=== PATIENT | male | born 1970 | race Two or more races ===

== ENCOUNTER 2017-01-11 13:18 | Inpatient (IN) | payer OTHER ==
[2017-01-11 14:18] VITALS: BMI 20.9
--- NOTE | 2017-01-11 15:28 | HP ---
CIWA Score - CIWA Score Nausea/Vomitin-Mild Nausea/No Vomiting Muscle Tremors: 4-Moderate,w/Arms Extend Anxiety: 4-Mod. Anxious/Guarded Agitation: 4-Moderately Restless Paroxysmal Sweats: 3 Orientation: 0-Oriented Tacttile Disturbances: 0-None Auditory Disturbances: 0-None Visual Disturbances: 0-None Headache: 3-Moderate CIWA-Ar Total Score: 19 Admission ROS [facility] - HPI Chief Complaint: I need detox Allergies/Adverse Reactions: Allergies Allergy/AdvReac Type Severity Reaction Status Date / Time No Known Allergies Allergy Verified 01/11/17 15:07 History of Present Illness: pt is a 46yr old female with a history of alcohol dependence seeking detox for treatment. Exam Limitations: No Limitations - Ebola screening Have you traveled outside of the country in the last 21 days: No Have you had contact with anyone from an Ebola affected area: No Have you been sick,other than usual withdrawal symptoms: No Do you have a fever: No - Review of Systems Constitutional: Diaphoresis, Loss of Appetite, Changes in sleep, Unintentional Wgt. Loss EENT: reports: Tearing Respiratory: reports: Cough Cardiac: reports: Syncope GI: reports: Diarrhea, Nausea, Poor Appetite, Poor Fluid Intake, Vomiting : reports: No Symptoms Reported Musculoskeletal: reports: Back Pain, Joint Pain Integumentary: reports: Flushing, Sweating Neuro: reports: Headache, Tingling, Tremors Endocrine: reports: Excessive Sweating, Flushing, Intolerance to Cold, Intolerance to Heat Hematology: reports: No Symptoms Reported Psychiatric: reports: Judgement Intact, Mood/Affect Appropiate, Orientated x3, Agitated, Anxious Other Systems: Reviewed and Negative Patient History - Patient Medical History Hx Anemia: No Hx Asthma: Yes Hx Chronic Obstructive Pulmonary Disease (COPD): No Hx Cancer: No Hx Cardiac Disorders: No Hx Congestive Heart Failure: No Hx Hypertension: No Hx Hypercholesterolemia: No Hx Pacemaker: No HX Cerebrovascular Accident: No Hx Seizures: No Hx Dementia: No Hx Diabetes: No Hx Gastrointestinal Disorders: No Hx Liver Disease: No Hx Genitourinary Disorders: No Hx Sexually Transmitted Disorders: No Hx Renal Disease (ESRD): No Hx Thyroid Disease: No Hx Human Immunodeficiency Virus (HIV): Yes (dx-2000, triumeq did not bring med) Hx Hepatitis C: No Hx Depression: Yes Hx Suicide Attempt: No (denies) Hx Bipolar Disorder: Yes Hx Schizophrenia: No - Patient Surgical History Past Surgical History: Yes Other Surgical History: skin abscesses with i/d - PPD History Previous Implant?: Yes Documented Results: Negative w/o proof PPD to be Administered?: Yes - Reproductive History Patient is a Female of Child Bearing Age (11 -55 yrs old): No - Smoking Cessation Smoking history: Current every day smoker Have you smoked in the past 12 months: Yes Aproximately how many cigarettes per day: 7 Cigars Per Day: 0 Hx Chewing Tobacco Use: No Initiated information on smoking cessation: Yes 'Breaking Loose' booklet given: 01/11/17 - Substance & Tx. History Hx Alcohol Use: Yes Hx Substance Use: No Substance Use Type: Alcohol Hx Substance Use Treatment: Yes - Substances Abused Alcohol-beer/vodka Route: Oral Frequency: Daily Amount used: 2-6 pks./1 pt. Age of first use: 36 Date of Last Use: 01/11/17 Family Disease History - Family Disease History Family Disease History: Heart Disease: Brother (cad/[place] 2 brothers ) Admission Physical Exam [facility] - Vital Signs Vital Signs: Vital Signs - 24 hr 01/11/17 14:16 Temperature 98.3 F Pulse Rate 80 Respiratory 20 Rate Blood Pressure 105/69 - Physical General Appearance: Yes: Appropriately Dressed, Moderate Distress, Tremorous, Irritable, Sweating, Anxious HEENTM: Yes: Normal Voice, Nasal Congestion, Rhinorrhea Respiratory: Yes: Lungs Clear, Normal Breath Sounds, No Respiratory Distress Neck: Yes: No masses,lesions,Nodules Breast: Yes: Within Normal Limits Cardiology: Yes: Regular Rhythm, Regular Rate, S1, S2 Abdominal: Yes: Normal Bowel Sounds, Non Tender, Soft Genitourinary: Yes: Within Normal Limits Back: Yes: Normal Inspection Musculoskeletal: Yes: full range of Motion, Back pain Extremities: Yes: Normal Capillary Refill, Non-Tender, Tremors Neurological: Yes: Fully Oriented, Alert, Normal Response Integumentary: Yes: Normal Color, Diaphoresis Lymphatic: Yes: Within Normal Limits - Diagnostic (1) Asthma Current Visit: Yes Status: Chronic Qualifiers: Asthma severity: mild intermittent Asthma complication type: uncomplicated Qualified Code(s): J45.20 - Mild intermittent asthma, uncomplicated (2) HIV disease Current Visit: Yes Status: Chronic Comment: not sure of viral load or tcell count (3) Nicotine dependence Current Visit: Yes Status: Chronic Qualifiers: Nicotine product type: cigarettes Substance use status: uncomplicated Qualified Code(s): F17.210 - Nicotine dependence, cigarettes, uncomplicated (4) Alcohol dependence with uncomplicated withdrawal Current Visit: Yes Status: Chronic (5) Cocaine dependence, uncomplicated Current Visit: Yes Status: Chronic (6) H/O shigellosis Current Visit: No Status: Inactive Cleared for Admission [facility] - Detox or Rehab [facility] Level of Care: Medically Managed Detox Regimen/Protocol: Librium [facility] Breath Alcohol Content Breath Alcohol Content: 0.042 Urine Pregancy Test - Result Urine Test Results: Negative- NO Line Present Urine Drug Screen - Results Drug Screen Negative: No Urine Drug Screen Results: KATHLEEN-Cocaine
[2017-01-11] MEDS ORDERED: IBUPROFEN 400 MG TABLET (FP) PO PRN (15:46)
[2017-01-11] MEDS ORDERED: ACETAMINOPHEN 325 MG TABLET (FP) PO PRN (15:46)
[2017-01-11] MEDS ORDERED: guaiFENesin/D-METHORPHAN HB 10 ML UNIT-DOSE CUPS PO PRN (15:46)
[2017-01-11] MEDS ORDERED: MAG HYDROX/AL HYDROX/SIMETH 30 ML UNIT-DOSE CUP PO PRN (15:46)
[2017-01-11] MEDS ORDERED: hydrOXYzine PAMOATE 50 MG CAPSULE (FP) PO PRN (15:46)
[2017-01-11] MEDS ORDERED: MAGNESIUM CITRATE 300 ML BOTTLE PO PRN (15:46)
[2017-01-11] MEDS ORDERED: MAGNESIUM HYDROX 2400MG/30ML ORAL SUSPENSION 30 ML CUP PO PRN (15:46)
[2017-01-11] MEDS ORDERED: NICOTINE POLACRILEX 4 MG GUM BC PRN (15:46)
[2017-01-11] MEDS ORDERED: MENTHOL/PHENOL 1 EACH UD MM PRN (15:46)
[2017-01-11] MEDS ORDERED: LOPERAMIDE HCL 2 MG CAPSULE PO PRN (15:46)
[2017-01-11] MEDS ORDERED: P-EPHED 60MG/TRIPROLIDI 2.5MG TABLET PO PRN (15:46)
[2017-01-11] MEDS ORDERED: chlordiazePOXIDE HCL 25 MG CAPSULE PO PRN (15:46)
[2017-01-11] MEDS ORDERED: TRIMETHOBENZAMIDE HCL 300 MG CAPSULE PO PRN (15:51)
[2017-01-11] MEDS ORDERED: COLLOIDAL OATMEAL 1 BAR EACH TP PRN (15:52)
[2017-01-11] MEDS ORDERED: ALBUTEROL SO4 6.7 GM HFA INHALER IH PRN (16:00)
[2017-01-11] MEDS ORDERED: chlordiazePOXIDE HCL 25 MG CAPSULE PO ONE (18:00)
[2017-01-11 22:46] LABS: URINE APPEARANCE CLEAR; URINE BILIRUBIN NEGATIVE (NEGATIVE); URINE BLOOD NEGATIVE (NEGATIVE); URINE COLOR YELLOW; URINE GLUCOSE (UA) NEGATIVE (NEGATIVE); URINE KETONE TRACE (NEGATIVE); URINE LEUK ESTERASE NEGATIVE (NEGATIVE); URINE NITRITE NEGATIVE (NEGATIVE); URINE PROTEIN NEGATIVE (NEGATIVE); URINE UROBILINOGEN NEGATIVE E.U./dl (0.2-1.0)
[2017-01-11] MEDS: THIAMINE HCL 100 MG TABLET (FP) PO SCH (23:36)
[2017-01-11] MEDS: chlordiazePOXIDE HCL 25 MG CAPSULE PO SCH (23:36)
[2017-01-12] MEDS: chlordiazePOXIDE HCL 25 MG CAPSULE PO SCH ×4 (05:27→22:04)
--- NOTE | 2017-01-12 08:25 | EKG ---
Test Reason : Blood Pressure : / mmHG Vent. Rate : 072 BPM Atrial Rate : 072 BPM P-R Int : 144 ms QRS Dur : 086 ms QT Int : 398 ms P-R-T Axes : 050 -45 025 degrees QTc Int : 435 ms NORMAL SINUS RHYTHM LEFT AXIS DEVIATION ABNORMAL ECG NO PREVIOUS ECGS AVAILABLE Confirmed by VALERIO AL MD ([id number]) on 01/12/2017 8:25:22 AM Referred By: Confirmed By:VALERIO AL MD
--- NOTE | 2017-01-12 10:22 | CONSULT ---
[facility] Psychiatric Consult - Data Date of interview: 01/12/17 Admission source: [facility] Identifying data: This is 46 years old male with history of psychiatric hospitalizations intoxicated with Alcohol and Nicotine Substance Abuse History: - Smoking Cessation. Smoking history: Current every day smoker. Have you smoked in the past 12 months: Yes. Aproximately how many cigarettes per day: 7. Cigars Per Day: 0. Hx Chewing Tobacco Use: No. Initiated information on smoking cessation: Yes. 'Breaking Loose' booklet given : 01/11/17. - Substance & Tx. History. Hx Alcohol Use: Yes. Hx Substance Use : No. Substance Use Type: Alcohol. Hx Substance Use Treatment: Yes. - Substances Abused. Alcohol-beer/vodka. Route: Oral. Frequency: Daily. Amount used: 2-6 pks./1 pt. Age of first use: 36. Date of Last Use: 01/11/17 Medical History: Asthma, HIV, Psychiatric History: Patient reports history of Bipolar Dicorider, PTSD history , reports taking prior to admission, reports taking prior to admission: Zyprexa 20mg po qhs. Trazodone 50mg po qhs Physical/Sexual Abuse/Trauma History: Denies Additional Comment: Zyprexa 20mg po qhs. Trazodone 50mg po qhs Mental Status Exam - Mental Status Exam Alert and Oriented to: Person Cognitive Function: Fair Patient Appearance: Unkempt Mood: Anxious Affect: Constricted Patient Behavior: Fatigued, Guarded Speech Pattern: Slurred Voice Loudness: Mildly Soft/Quiet Thought Process: Circumstantial Thought Disorder: Being Controlled Hallucinations: Denies Suicidal Ideation: Denies Homicidal Ideation: Denies Insight/Judgement: Fair Sleep: Difficulty falling asleep Appetite: Weight loss Muscle strength/Tone: Mild Hypotonicity Gait/Station: Shuffling Additional Comments: Zyprexa 20mg po qhs. Trazodone 50mg po qhs Psychiatric Findings - Problem List ([place] 1, 2,3) (1) Alcohol dependence with uncomplicated withdrawal Current Visit: Yes Status: Chronic (2) Cocaine dependence, uncomplicated Current Visit: Yes Status: Chronic (3) Nicotine dependence Current Visit: Yes Status: Chronic Qualifiers: Nicotine product type: cigarettes Substance use status: uncomplicated Qualified Code(s): F17.210 - Nicotine dependence, cigarettes, uncomplicated (4) Bipolar I disorder, most recent episode mixed, severe with psychotic features Current Visit: No Status: Acute (5) Posttraumatic stress disorder Current Visit: No Status: Acute (6) Alcohol induced insomnia Current Visit: Yes Status: Acute - Initial Treatment Plan Initial Treatment Plan: Zyprexa 20mg po qhs. Trazodone 50mg po qhs
[2017-01-12 10:24] LABS: ALBUMIN 3.9 g/dl (3.4-5.0); ANION GAP 12 (8-16); BILIRUBIN,TOTAL 0.4 mg/dL (0.2-1.0); CALCIUM 8.5 mg/dL (8.5-10.1); CO2 26 mmol/L (21-32); CREATININE 0.7 mg/dL (0.7-1.3); GLUCOSE,RANDOM 78 mg/dL (74-106); SGOT/AST 172 U/L (15-37); SGPT/ALT 68 U/L (12-78); TOT PROT 8.8 g/dl (6.4-8.2)
[2017-01-12 10:25] LABS: ALK PHOS 115 U/L (45-117)
[2017-01-12] MEDS: PRENATAL VITAMINS W/ FOLIC ACID TABLET (FP) PO SCH (10:27)
[2017-01-12] MEDS: NICOTINE 21 MG/24 HOURS TOPICAL PATCH TD SCH (10:29)
--- NOTE | 2017-01-12 10:33 | PN ---
S CIWA - CIWA Score Nausea/Vomitin-Mild Nausea/No Vomiting Muscle Tremors: 4-Moderate,w/Arms Extend Anxiety: 3 Agitation: 4-Moderately Restless Paroxysmal Sweats: 3 Orientation: 0-Oriented Tacttile Disturbances: 0-None Auditory Disturbances: 0-None Visual Disturbances: 0-None Headache: 1-Very Mild CIWA-Ar Total Score: 16 BHS Progress Note (SOAP) Subjective: nausea interrupted sleep shakes sweats chills Objective: 01/12/17 10:32 Vital Signs Temperature 98.1 F 01/12/17 06:49 Pulse Rate 86 01/12/17 06:49 Respiratory Rate 18 01/12/17 06:49 Blood Pressure 99/65 01/12/17 06:49 O2 Sat by Pulse Oximetry (%) Laboratory Tests 01/11/17 20:00 Urine Color Yellow Urine Appearance Clear Urine pH 5.0 Ur Specific [place] 1.016 Urine Protein Negative Urine Glucose (UA) Negative Urine Ketones Trace H Urine Blood Negative Urine Nitrite Negative Urine Bilirubin Negative Urine Urobilinogen Negative Ur Leukocyte Esterase Negative labs pending awake/alert ambulating no acute distress Assessment: 01/12/17 10:33 withdrawal sx Plan: continue detox increase fluids labs pending
[2017-01-12 10:49] LABS: MCH 30.1 pg (25.7-33.7); MCHC 33.1 g/dl (32.0-35.9); PLATELET COUNT 237 K/MM3 (134-434); RDW 15.4 % (11.9-15.9); WHITE BLOOD COUNT 4.1 K/mm3 (4.0-10.0)
[2017-01-12] MEDS: HYDROCORTISONE 1% TOPICAL OINT 30 GM TUBE TP PRN ×2 (15:51→22:05)
[2017-01-12] MEDS: traZODone HCL 50 MG TABLET (FP) PO SCH (22:04)
[2017-01-12] MEDS: THIAMINE HCL 100 MG TABLET (FP) PO SCH (22:04)
[2017-01-12] MEDS: OLANZapine 10 MG TABLET PO SCH (22:04)
[2017-01-13] MEDS: chlordiazePOXIDE HCL 25 MG CAPSULE PO SCH ×3 (07:53→17:57)
[2017-01-13] MEDS: PRENATAL VITAMINS W/ FOLIC ACID TABLET (FP) PO SCH (10:29)
[2017-01-13] MEDS: NICOTINE 21 MG/24 HOURS TOPICAL PATCH TD SCH (10:29)
--- NOTE | 2017-01-13 11:55 | PN ---
S CIWA - CIWA Score Nausea/Vomitin Muscle Tremors: 3 Anxiety: 2 Agitation: 2 Paroxysmal Sweats: 3 Orientation: 0-Oriented Tacttile Disturbances: 2-Mild Itch/Numbness/Burn Auditory Disturbances: 0-None Visual Disturbances: 0-None Headache: 0-None Present CIWA-Ar Total Score: 14 S Progress Note (SOAP) Subjective: interrupted sleep, sweats, lbp, left knee pain Objective: 01/13/17 11:53 Vital Signs Temperature 97.8 F 01/13/17 09:57 Pulse Rate 96 H 01/13/17 09:57 Respiratory Rate 16 01/13/17 09:57 Blood Pressure 112/68 01/13/17 09:57 O2 Sat by Pulse Oximetry (%) Laboratory Tests 01/11/17 01/12/17 01/12/17 20:00 06:00 06:00 WBC 4.1 RBC 3.60 L Hgb 10.8 L Hct 32.8 L MCV 91.0 MCHC 33.1 RDW 15.4 Plt Count 237 MPV 9.0 Sodium 143 Potassium 4.2 Chloride 105 Carbon Dioxide 26 Anion Gap 12 BUN 12 D Creatinine 0.7 Creat Clearance w eGFR > 60 Random Glucose 78 Calcium 8.5 Total Bilirubin 0.4 D AST 172 H D ALT 68 D Alkaline Phosphatase 115 Total Protein 8.8 H Albumin 3.9 Urine Color Yellow Urine Appearance Clear Urine pH 5.0 Ur Specific [place] 1.016 Urine Protein Negative Urine Glucose (UA) Negative Urine Ketones Trace H Urine Blood Negative Urine Nitrite Negative Urine Bilirubin Negative Urine Urobilinogen Negative Ur Leukocyte Esterase Negative RPR Titer 01/12/17 06:00 WBC RBC Hgb Hct MCV MCHC RDW Plt Count MPV Sodium Potassium Chloride Carbon Dioxide Anion Gap BUN Creatinine Creat Clearance w eGFR Random Glucose Calcium Total Bilirubin AST ALT Alkaline Phosphatase Total Protein Albumin Urine Color Urine Appearance Urine pH Ur Specific [place] Urine Protein Urine Glucose (UA) Urine Ketones Urine Blood Urine Nitrite Urine Bilirubin Urine Urobilinogen Ur Leukocyte Esterase RPR Titer Nonreactive pt aox3 sitting up in bed Assessment: 01/13/17 11:54 withdrawal sx's lbp left knee pain hiv Plan: cont. detox increase fluids motrin prn lidocaine patch/d analgesic balm
[2017-01-13] MEDS: chlordiazePOXIDE 5 MG CAPSULE PO SCH (22:02)
[2017-01-13] MEDS: OLANZapine 10 MG TABLET PO SCH (22:02)
[2017-01-13] MEDS: diphenhydrAMINE HCL 50 MG CAPSULE PO PRN (22:02)
[2017-01-13] MEDS: traZODone HCL 50 MG TABLET (FP) PO SCH (22:02)
[2017-01-13] MEDS: THIAMINE HCL 100 MG TABLET (FP) PO SCH (22:02)
[2017-01-14] MEDS: diphenhydrAMINE HCL 50 MG CAPSULE PO PRN (00:29)
[2017-01-14] MEDS: chlordiazePOXIDE 5 MG CAPSULE PO SCH ×2 (08:07→10:43)
--- NOTE | 2017-01-14 10:35 | PN ---
BHS Progress Note (SOAP) Subjective: feeling better and i will like to go to rehab today. Objective: 01/14/17 10:34 Vital Signs Temperature 97.7 F 01/14/17 06:00 Pulse Rate 91 H 01/14/17 06:00 Respiratory Rate 18 01/14/17 06:00 Blood Pressure 102/66 01/14/17 06:00 O2 Sat by Pulse Oximetry (%) Laboratory Tests 01/11/17 01/12/17 01/12/17 20:00 06:00 06:00 WBC 4.1 RBC 3.60 L Hgb 10.8 L Hct 32.8 L MCV 91.0 MCHC 33.1 RDW 15.4 Plt Count 237 MPV 9.0 Sodium 143 Potassium 4.2 Chloride 105 Carbon Dioxide 26 Anion Gap 12 BUN 12 D Creatinine 0.7 Creat Clearance w eGFR > 60 Random Glucose 78 Calcium 8.5 Total Bilirubin 0.4 D AST 172 H D ALT 68 D Alkaline Phosphatase 115 Ammonia Total Protein 8.8 H Albumin 3.9 Urine Color Yellow Urine Appearance Clear Urine pH 5.0 Ur Specific [place] 1.016 Urine Protein Negative Urine Glucose (UA) Negative Urine Ketones Trace H Urine Blood Negative Urine Nitrite Negative Urine Bilirubin Negative Urine Urobilinogen Negative Ur Leukocyte Esterase Negative RPR Titer 01/12/17 01/14/17 06:00 08:00 WBC RBC Hgb Hct MCV MCHC RDW Plt Count MPV Sodium Potassium Chloride Carbon Dioxide Anion Gap BUN Creatinine Creat Clearance w eGFR Random Glucose Calcium Total Bilirubin AST ALT Alkaline Phosphatase Ammonia 48.45 H Total Protein Albumin Urine Color Urine Appearance Urine pH Ur Specific [place] Urine Protein Urine Glucose (UA) Urine Ketones Urine Blood Urine Nitrite Urine Bilirubin Urine Urobilinogen Ur Leukocyte Esterase RPR Titer Nonreactive ammonia level result 48.45; pt is AAOX3, pt does not demonstrate any periods of confusion. pt does understand better when spoken in three affiliated language (Pashto). awake/alert ambulating no acute distress Assessment: 01/14/17 11:18 no withdrawal s/s noted Plan[facility]
[2017-01-14] MEDS: HYDROCORTISONE 1% TOPICAL OINT 30 GM TUBE TP PRN (10:42)
[2017-01-14] MEDS: PRENATAL VITAMINS W/ FOLIC ACID TABLET (FP) PO SCH (10:42)
[2017-01-14] MEDS: NICOTINE 21 MG/24 HOURS TOPICAL PATCH TD SCH (10:43)
[2017-01-14 10:56] VITALS: BP 107/67; PULSE 55; TEMP 96.3
[2017-01-14 11:48] LABS: SGOT/AST 63 U/L (15-37); SGPT/ALT 48 U/L (12-78)
[2017-01-14] MEDS ORDERED: chlordiazePOXIDE HCL 10 MG CAPSULE PO SCH (23:00)
--- NOTE | 2017-02-17 09:30 | DS ---
[facility] Detox Discharge Summary Admission Date: 01/11/17 - History Present History: Alcohol Dependence, Cocaine Dependence - Physical Exam Results Vital Signs: Vital Signs Temperature 96.3 F L 01/14/17 10:56 Pulse Rate 55 L 01/14/17 10:56 Respiratory Rate 18 01/14/17 10:56 Blood Pressure 107/67 01/14/17 10:56 O2 Sat by Pulse Oximetry (%) - Treatment Hospital Course: Detox Protocol Followed, Detoxed Safely, Responded well, Discharged Condition Good - Medication Discharge Medications: Ambulatory Orders Olanzapine [ZyPREXA -] 20 mg PO HS #30 tablet 01/08/14 Abacavir/Dolutegravir/Lamivudi [Triumeq Tablet] 1 each PO DAILY 01/11/17 Albuterol Sulfate Inhaler - [Ventolin Hfa Inhaler -] 2 inh IH Q4H 01/11/17 Olanzapine [Zyprexa -] 20 mg PO HS #30 tablet 01/12/17 Trazodone HCl [Desyrel -] 50 mg PO HS #30 tablet 01/12/17 - Diagnosis (1) Bipolar I disorder, most recent episode mixed, severe with psychotic features Status: Chronic (2) Posttraumatic stress disorder Status: Chronic (3) Alcohol dependence with uncomplicated withdrawal Status: Chronic (4) Asthma Status: Chronic Qualifiers: Asthma severity: mild intermittent Asthma complication type: uncomplicated Qualified Code(s): J45.20 - Mild intermittent asthma, uncomplicated (5) Cocaine dependence, uncomplicated Status: Chronic (6) HIV disease Status: Chronic (7) Nicotine dependence Status: Chronic Qualifiers: Nicotine product type: cigarettes Substance use status: uncomplicated Qualified Code(s): F17.210 - Nicotine dependence, cigarettes, uncomplicated - AMA Did Patient Leave Against Medical Advice: No
== END 2017-01-14 11:32 | disposition other institution (70) | DRG 774 ==
LOC: YASAS 13:18 → Y6N 16:35
PROVIDERS: ADMIT Internal Medicine Addiction Medicine; ATTEND Internal Medicine Addiction Medicine
PROC: HZ2ZZZZ Detoxification Services for Substance Abuse Treatment (ICD-10-PCS; principal; 2017-01-14)
DX: F10.230 Alcohol dependence with withdrawal, uncomplicated (principal); F14.20 Cocaine dependence, uncomplicated; F17.210 Nicotine dependence, cigarettes, uncomplicated; F10.282 Alcohol dependence with alcohol-induced sleep disorder; F31.89 Other bipolar disorder; F43.10 Post-traumatic stress disorder, unspecified; J45.20 Mild intermittent asthma, uncomplicated; Z21 Asymptomatic human immunodeficiency virus [HIV] infection status; Z59.0 Homelessness
CPT/HCPCS: 36415; 80053; 81003; 82140; 84450; 84460; 85027; 86593; 93005; 93010

== ENCOUNTER 2018-10-31 12:30 | Inpatient (IN) | payer OTHER ==
[2018-10-31 13:21] VITALS: BMI 24.0
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
[2018-10-31] MEDS ORDERED: MAGNESIUM CITRATE 300 ML BOTTLE PO PRN (15:43)
[2018-10-31] MEDS ORDERED: IBUPROFEN 400 MG TABLET (FP) PO PRN (15:43)
[2018-10-31] MEDS ORDERED: MAG HYDROX/AL HYDROX/SIMETH 30 ML UNIT-DOSE CUP PO PRN (15:43)
[2018-10-31] MEDS ORDERED: ACETAMINOPHEN 325 MG TABLET (FP) PO PRN (15:43)
[2018-10-31] MEDS ORDERED: NICOTINE POLACRILEX 2 MG GUM BC PRN (15:43)
[2018-10-31] MEDS ORDERED: MENTHOL/PHENOL 1 EACH UD MM PRN (15:43)
[2018-10-31] MEDS ORDERED: MAGNESIUM HYDROX 2400MG/30ML ORAL SUSPENSION 30 ML CUP PO PRN (15:43)
[2018-10-31] MEDS ORDERED: AMMONIUM LACTATE 12% LOTION 225 GM BOTTLE TP PRN (15:45)
[2018-10-31] MEDS: diazePAM 5 MG TABLET PO PRN (21:21)
[2018-10-31] MEDS: THIAMINE HCL 100 MG TABLET (FP) PO SCH (21:21)
[2018-10-31] MEDS: PREGABALIN 50 MG CAPSULE PO SCH (21:21)
[2018-10-31] MEDS ORDERED: MELATONIN 5 MG TABLETS PO PRN (22:00)
[2018-10-31] MEDS: diazePAM 5 MG TABLET PO SCH (22:26)
[2018-11-01] MEDS: diazePAM 5 MG TABLET PO SCH ×3 (06:50→22:25)
[2018-11-01] MEDS ORDERED: ABACAVIR/DOLUTEGRAVIR/LAMIVUDI (TRIUMEQ) TABLET -NF PO SCH (08:00)
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
[2018-11-01] MEDS: PREGABALIN 50 MG CAPSULE PO SCH ×2 (10:18→22:25)
[2018-11-01] MEDS: PRENATAL VITAMINS W/ FOLIC ACID TABLET (FP) PO SCH (10:18)
[2018-11-01] MEDS: SULFAMETHOXAZOLE/TRIMETHOPRIM 800MG/160MG D.S. TABLET PO SCH (10:18)
[2018-11-01] MEDS: diazePAM 5 MG TABLET PO PRN (10:18)
[2018-11-01 10:33] LABS: HEMATOCRIT 34.6 % (35.4-49); HEMOGLOBIN 11.8 GM/dL (11.7-16.9); MCH 30.6 pg (25.7-33.7); MCHC 34.1 g/dl (32.0-35.9); MEAN CELL VOLUME 89.5 fl (80-96); PLATELET COUNT 325 K/MM3 (134-434); RBC 3.86 M/mm3 (4.00-5.60); RDW 14.6 % (11.9-15.9); WHITE BLOOD COUNT 3.9 K/mm3 (4.0-10.0)
[2018-11-01 10:51] LABS: ALBUMIN 4.1 g/dl (3.4-5.0); ALK PHOS 149 U/L (45-117); ANION GAP 9 MMOL/L (8-16); BILIRUBIN,TOTAL 0.8 mg/dL (0.2-1); BLOOD UREA NITROGEN 21 mg/dL (7-18); CALCIUM 9.5 mg/dL (8.5-10.1); CHLORIDE 105 mmol/L (98-107); CO2 26 mmol/L (21-32); GLUCOSE,RANDOM 90 mg/dL (74-106); POTASSIUM 4.4 mmol/L (3.5-5.1); SGOT/AST 20 U/L (15-37); SGPT/ALT 18 U/L (13-61); SODIUM 139 mmol/L (136-145); TOT PROT 8.8 g/dl (6.4-8.2)
--- NOTE | 2018-11-01 16:46 | PN ---
S CIWA - CIWA Score Nausea/Vomitin-No Nausea/No Vomiting Muscle Tremors: 2 Anxiety: 3 Agitation: 1-Slight > Activity Paroxysmal Sweats: No Perspiration Orientation: 0-Oriented Tacttile Disturbances: 0-None Auditory Disturbances: 2-Mild Harshness/Frighten Visual Disturbances: 3-Moderate Sensitivity Headache: 0-None Present CIWA-Ar Total Score: 11 BHS Progress Note (SOAP) Subjective: Interrupted Sleep, Body Aches, Tremors. Objective: PATIENT A & O X 3, OBSERVED AMBULATING ON UNIT. IN NO ACUTE DISTRESS. 11/01/18 16:43 Vital Signs Temperature 97.0 F L 11/01/18 13:37 Pulse Rate 110 H 11/01/18 13:37 Respiratory Rate 18 11/01/18 13:37 Blood Pressure 139/82 11/01/18 13:37 O2 Sat by Pulse Oximetry (%) Laboratory Tests 11/01/18 11/01/18 11/01/18 07:00 07:00 07:00 WBC 3.9 L RBC 3.86 L Hgb 11.8 Hct 34.6 L MCV 89.5 MCH 30.6 MCHC 34.1 RDW 14.6 Plt Count 325 D MPV 9.0 Sodium 139 Potassium 4.4 Chloride 105 Carbon Dioxide 26 Anion Gap 9 BUN 21 H Creatinine 1.0 Creat Clearance w eGFR > 60 Random Glucose 90 Calcium 9.5 Total Bilirubin 0.8 AST 20 ALT 18 Alkaline Phosphatase 149 H Total Protein 8.8 H Albumin 4.1 RPR Titer Nonreactive LABS NOTED. Assessment: 11/01/18 16:44 WITHDRAWAL SYMPTOMS. ANEMIA. 11/01/18 16:45 Plan: CONTINUE DETOX. INCREASE DAILY PO FLUID INTAKE.
[2018-11-01] MEDS: traZODone HCL 50 MG TABLET (FP) PO SCH (22:25)
[2018-11-01] MEDS: THIAMINE HCL 100 MG TABLET (FP) PO SCH (22:25)
[2018-11-01] MEDS: OLANZapine 10 MG TABLET PO SCH (23:15)
[2018-11-02] MEDS: DOLUTEGRAVIR PO SCH (08:19)
[2018-11-02] MEDS: LAMIVUDI PO SCH (08:19)
[2018-11-02] MEDS: ABACAVIR PO SCH (08:19)
--- NOTE | 2018-11-02 09:38 | PN ---
[facility] CIWA - CIWA Score Nausea/Vomitin Muscle Tremors: 2 Anxiety: 2 Agitation: 2 Paroxysmal Sweats: 1-Minimal Palms Moist Orientation: 0-Oriented Tacttile Disturbances: 1-Very Mild Itch/Numbness Auditory Disturbances: 1-Very Mild Visual Disturbances: 0-None Headache: 2-Mild CIWA-Ar Total Score: 13 BHS Progress Note (SOAP) Subjective: alert,irritable,anxious,interrupted sleep,tremor Objective: 11/02/18 09:38 Vital Signs Temperature 97.3 F L 11/02/18 09:02 Pulse Rate 92 H 11/02/18 09:02 Respiratory Rate 18 11/02/18 09:02 Blood Pressure 105/50 L 11/02/18 09:02 O2 Sat by Pulse Oximetry (%) Assessment: 11/02/18 09:38 withdrawal symptom Plan: continue detox
[2018-11-02] MEDS: diazePAM 5 MG TABLET PO SCH ×2 (10:36→22:16)
[2018-11-02] MEDS: PREGABALIN 50 MG CAPSULE PO SCH ×2 (10:37→22:16)
[2018-11-02] MEDS: PRENATAL VITAMINS W/ FOLIC ACID TABLET (FP) PO SCH (10:37)
[2018-11-02] MEDS: OLANZapine 10 MG TABLET PO SCH (22:16)
[2018-11-02] MEDS: THIAMINE HCL 100 MG TABLET (FP) PO SCH (22:16)
[2018-11-02] MEDS: traZODone HCL 50 MG TABLET (FP) PO SCH (22:16)
[2018-11-03] MEDS: LAMIVUDI PO SCH (07:29)
[2018-11-03] MEDS: ABACAVIR PO SCH (07:29)
[2018-11-03] MEDS: DOLUTEGRAVIR PO SCH (07:29)
[2018-11-03 09:16] VITALS: BP 107/64; PULSE 79; TEMP 98.2
[2018-11-03] MEDS: PREGABALIN 50 MG CAPSULE PO SCH (10:18)
[2018-11-03] MEDS: diazePAM 5 MG TABLET PO SCH (10:18)
[2018-11-03] MEDS: SULFAMETHOXAZOLE/TRIMETHOPRIM 800MG/160MG D.S. TABLET PO SCH (10:18)
[2018-11-03] MEDS: PRENATAL VITAMINS W/ FOLIC ACID TABLET (FP) PO SCH (10:18)
--- NOTE | 2018-11-03 10:18 | PN ---
[facility] Progress Note (SOAP) Subjective: alert,irritable,anxious,interrupted sleep,pain in the body Objective: 11/03/18 10:17 Vital Signs Temperature 98.2 F 11/03/18 09:15 Pulse Rate 79 11/03/18 09:15 Respiratory Rate 18 11/03/18 09:15 Blood Pressure 107/64 11/03/18 09:15 O2 Sat by Pulse Oximetry (%) Assessment: 11/03/18 10:18 withdrawal symptom Plan: continue detox,discharge in am
[2018-11-04] MEDS ORDERED: diazePAM 5 MG TABLET PO SCH (10:00)
== END 2018-11-03 14:10 | disposition other institution (70) | DRG 774 ==
LOC: YASAS 12:30 → Y6N 17:33
PROVIDERS: ADMIT Surgery; ATTEND Surgery
PROC: HZ2ZZZZ Detoxification Services for Substance Abuse Treatment (ICD-10-PCS; principal; 2018-10-31)
DX: F10.230 Alcohol dependence with withdrawal, uncomplicated (principal); F10.282 Alcohol dependence with alcohol-induced sleep disorder; F14.20 Cocaine dependence, uncomplicated; F17.210 Nicotine dependence, cigarettes, uncomplicated; F31.64 Bipolar disorder, current episode mixed, severe, with psychotic features; F43.10 Post-traumatic stress disorder, unspecified; J45.20 Mild intermittent asthma, uncomplicated; D64.9 Anemia, unspecified; Z21 Asymptomatic human immunodeficiency virus [HIV] infection status
CPT/HCPCS: 36415; 80053; 85027; 86593

== ENCOUNTER 2018-11-03 14:20 | Inpatient (IN) | payer OTHER ==
[2018-11-03] MEDS ORDERED: NICOTINE POLACRILEX 2 MG GUM BUC PRN (21:13)
[2018-11-03] MEDS ORDERED: ACETAMINOPHEN 325 MG TABLET (FP) PO PRN (21:13)
[2018-11-03] MEDS ORDERED: MAG HYDROX/AL HYDROX/SIMETH 30 ML UNIT-DOSE CUP PO PRN (21:13)
[2018-11-03] MEDS ORDERED: P-EPHED 60MG/TRIPROLIDI 2.5MG TABLET PO PRN (21:13)
[2018-11-03] MEDS ORDERED: MAGNESIUM HYDROX 2400MG/30ML ORAL SUSPENSION 30 ML CUP PO PRN (21:13)
[2018-11-03] MEDS ORDERED: LOPERAMIDE HCL 2 MG CAPSULE PO PRN (21:13)
[2018-11-03] MEDS ORDERED: IBUPROFEN 400 MG TABLET (FP) PO PRN (21:13)
[2018-11-03] MEDS ORDERED: guaiFENesin/D-METHORPHAN HB 10 ML UNIT-DOSE CUPS PO PRN (21:13)
[2018-11-03] MEDS ORDERED: MENTHOL/PHENOL 1 EACH UD MM PRN (21:13)
[2018-11-03] MEDS ORDERED: MAGNESIUM CITRATE 300 ML BOTTLE PO PRN (21:13)
--- NOTE | 2018-11-03 21:13 | HP ---
[facility] Rehab Assess/Revision - Admission History Admitted to Rehab from: [address] - Vital signs Vital Signs: Vital Signs Period Temp Pulse Resp BP Sys/Zhao Pulse Ox Last 24 Hr 98.8 F 97 20 111/72 - Findings Detox History & Physical reviewed: Yes Concur with findings: Yes Inpatient Rehab Admission - Rehab Decision to Admit Inpatient rehab admission?: Yes - Initial Determination Are CD services needed?: No Free of communicable disease: Yes Not in need of hospitalization: Yes - Rehab Admission Criteria Previous failed treatment: Yes Poor recovery environment: Yes Comorbidities: Yes Lacks judgement: No Patient is meeting Inpatient Rehab admission criteria:: Yes
[2018-11-03] MEDS ORDERED: ALBUTEROL SO4 8 GM HFA INHALER IH PRN (21:15)
[2018-11-03] MEDS: AMMONIUM LACTATE 12% LOTION 225 GM BOTTLE TP SCH (22:32)
[2018-11-03] MEDS: MELATONIN 5 MG TABLETS PO PRN (22:33)
[2018-11-03] MEDS: THIAMINE HCL 100 MG TABLET (FP) PO SCH (22:33)
--- NOTE | 2018-11-04 08:16 | DS ---
S Detox Discharge Summary Admission Date: 11/03/18 Discharge Date: 11/03/18 - History Present History: Alcohol Dependence Additional Comments: patient is stable to be discharged to relevation as arrangement Pertinent Past History: asthma anemia hiv ptsd - Physical Exam Results Vital Signs: Vital Signs Temperature 97.6 F 11/04/18 07:24 Pulse Rate 76 11/04/18 07:24 Respiratory Rate 18 11/04/18 07:24 Blood Pressure 107/74 11/04/18 07:24 O2 Sat by Pulse Oximetry (%) Pertinent Admission Physical Exam Findings: withdrawal sins and symptom - Treatment Hospital Course: Detox Protocol Followed, Detoxed Safely, Responded well, Discharged Condition Good, Rehab Referral Accepted Patient has Accepted [facility] Referral [facility] - Medication Discharge Medications: Ambulatory Orders Albuterol Sulfate Inhaler - [Ventolin Hfa Inhaler -] 2 inh IH Q4H PRN 01/11/17 Olanzapine [Zyprexa -] 20 mg PO HS #30 tablet 01/12/17 Abacavir/Dolutegravir/Lamivudi [Triumeq Tablet] 1 each PO DAILY 10/31/18 Ammonium Lactate Lotion [Lac-Hydrin 12% Lotion -] 1 applic TP ASDIR 10/31/18 Pregabalin [Lyrica -] 50 mg PO BID 10/31/18 Sulfamethoxazole/Trimethoprim [Sulfamethoxazole-Tmp Ds Tablet] 1 each PO traZODone HCL [Desyrel -] 50 mg PO HS #30 tablet 11/01/18 - Diagnosis (1) Alcohol dependence with uncomplicated withdrawal Current Visit: No Status: Acute (2) Anemia Current Visit: No Status: Acute (3) Asthma Current Visit: No Status: Chronic Qualifiers: Asthma severity: mild intermittent Asthma complication type: uncomplicated (4) HIV disease Current Visit: No Status: Chronic (5) Nicotine dependence Current Visit: No Status: Chronic Qualifiers: Nicotine product type: cigarettes Substance use status: uncomplicated Qualified Code(s): F17.210 - Nicotine dependence, cigarettes, uncomplicated (6) Posttraumatic stress disorder Current Visit: No Status: Chronic - AMA Did Patient Leave Against Medical Advice: No
[2018-11-04] MEDS: PRENATAL VITAMINS W/ FOLIC ACID TABLET (FP) PO SCH (09:33)
[2018-11-04] MEDS: PREGABALIN 50 MG CAPSULE PO SCH ×2 (09:33→21:57)
[2018-11-04] MEDS: ABACAVIR/DOLUTEGRAVIR/LAMIVUDI (TRIUMEQ) TABLET -NF PO SCH (09:34)
[2018-11-04] MEDS: NICOTINE 14 MG/24 HOURS TOPICAL PATCH TD SCH (09:35)
[2018-11-04] MEDS: THIAMINE HCL 100 MG TABLET (FP) PO SCH (21:57)
[2018-11-04] MEDS: AMMONIUM LACTATE 12% LOTION 225 GM BOTTLE TP SCH (21:57)
[2018-11-04] MEDS: MELATONIN 5 MG TABLETS PO PRN (21:58)
[2018-11-05] MEDS: ABACAVIR/DOLUTEGRAVIR/LAMIVUDI (TRIUMEQ) TABLET -NF PO SCH (10:17)
[2018-11-05] MEDS: NICOTINE 14 MG/24 HOURS TOPICAL PATCH TD SCH (10:17)
[2018-11-05] MEDS: PRENATAL VITAMINS W/ FOLIC ACID TABLET (FP) PO SCH (10:17)
[2018-11-05] MEDS: PREGABALIN 50 MG CAPSULE PO SCH ×2 (10:17→21:51)
[2018-11-05] MEDS: THIAMINE HCL 100 MG TABLET (FP) PO SCH (21:50)
[2018-11-05] MEDS: AMMONIUM LACTATE 12% LOTION 225 GM BOTTLE TP SCH (21:51)
[2018-11-06] MEDS: MELATONIN 5 MG TABLETS PO PRN ×2 (00:43→21:40)
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
[2018-11-06] MEDS ORDERED: PT OWN MED DRAWER 7, Y5N ONE (08:49)
[2018-11-06] MEDS ORDERED: SULFAMETHOXAZOLE/TRIMETHOPRIM 800MG/160MG D.S. TABLET PO SCH (10:00)
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
[2018-11-06] MEDS: PRENATAL VITAMINS W/ FOLIC ACID TABLET (FP) PO SCH (10:40)
[2018-11-06] MEDS: ABACAVIR/DOLUTEGRAVIR/LAMIVUDI (TRIUMEQ) TABLET -NF PO SCH (10:40)
[2018-11-06] MEDS: PREGABALIN 50 MG CAPSULE PO SCH ×2 (10:40→21:37)
[2018-11-06] MEDS: NICOTINE 14 MG/24 HOURS TOPICAL PATCH TD SCH (10:40)
[2018-11-06] MEDS ORDERED: NAPROXEN 500 MG TABLET (FP) PO ONE (11:15)
[2018-11-06] MEDS: THIAMINE HCL 100 MG TABLET (FP) PO SCH (21:37)
[2018-11-06] MEDS: NAPROXEN 500 MG TABLET (FP) PO SCH (21:38)
[2018-11-06] MEDS: AMMONIUM LACTATE 12% LOTION 225 GM BOTTLE TP SCH (21:38)
[2018-11-07 07:11] VITALS: BP 116/73; PULSE 81; TEMP 97.3
[2018-11-07] MEDS: NAPROXEN 500 MG TABLET (FP) PO SCH (09:16)
[2018-11-07] MEDS: PREGABALIN 50 MG CAPSULE PO SCH (09:16)
[2018-11-07] MEDS: PRENATAL VITAMINS W/ FOLIC ACID TABLET (FP) PO SCH (09:16)
[2018-11-07] MEDS: ABACAVIR/DOLUTEGRAVIR/LAMIVUDI (TRIUMEQ) TABLET -NF PO SCH (09:16)
[2018-11-07] MEDS: NICOTINE 14 MG/24 HOURS TOPICAL PATCH TD SCH (09:16)
--- NOTE | 2018-11-07 15:45 | PN ---
[facility] Progress Note Note: PT DECLINED TO CONTINUE WITH REHAB AND WANTS TO FOLLOW UP WITH HIS PROVIDERS FOR MANAGEMENT. REPORTS SHE HAS PERCOCETS AT HOME AND WOULD LIKE TO LEAVE SINCE SHE CANNOT GET IT HERE. PT HAS A PMD(SEE NOTE OF 11/06/18). PT MET WITH HER COUNSELOR, MS IVAN MENDEZ WHO REPORTS PT DECLINED CD AFTERCARE. Vital Signs - 24 hr 11/07/18 11/07/18 11/07/18 00:30 03:30 07:09 Temperature 97.3 F L Pulse Rate 81 Respiratory 18 18 18 Rate Blood Pressure 116/73 NAD MEDICALLY STABLE PLAN;PT SIGNED OUT AMA FOLLOW UP WITH CARE TEAM FOR MEDICAL/PSYCH MANAGEMENT WITHIN 1 WEEK.
== END 2018-11-07 10:07 | disposition home or self-care (01) | DRG 772 ==
LOC: YASAS 14:20 → Y3E 14:28
PROVIDERS: ADMIT Neuromusculoskeletal Medicine & OMM; ATTEND Neuromusculoskeletal Medicine & OMM
PROC: HZ42ZZZ Group Counseling for Substance Abuse Treatment, Cognitive-Behavioral (ICD-10-PCS; principal; 2018-10-31)
DX: F10.20 Alcohol dependence, uncomplicated (principal); F17.210 Nicotine dependence, cigarettes, uncomplicated; F43.10 Post-traumatic stress disorder, unspecified; J45.20 Mild intermittent asthma, uncomplicated; D64.9 Anemia, unspecified; Z21 Asymptomatic human immunodeficiency virus [HIV] infection status; T24.011A Burn of unspecified degree of right thigh, initial encounter; T21.02XA Burn of unspecified degree of abdominal wall, initial encounter; T31.0 Burns involving less than 10% of body surface; X10.0XXA Contact with hot drinks, initial encounter; Y93.9 Activity, unspecified; Y92.239 Unspecified place in hospital as the place of occurrence of the external cause